=== PATIENT | female | born 1985 | race Caucasian/White ===

== ENCOUNTER 2017-05-12 07:03 | Inpatient (IN) | payer BC ==
[~2017-05-12] VITALS: Ht 167.6 cm; Wt 127.3 kg
[2017-05-12] VITALS (67 sets, daily range): BP systolic 97–146; BP diastolic 55–86; PULSE 69–117; TEMP 97.4–98.4
[~2017-05-12 07:03] MED LIST: MOTRIN 600600 MG/TAB PO; PEPCID AC20 MG PO; PERCOCET 325 MG1 TA2 PO; PRENATAL; PROAIR HFA0.09 MG/AC IH; ZYRTEC 10MG10 MG PO
[2017-05-12 09:49] LABS: HEMATOCRIT 39.8 % (37.0-47.0); HEMOGLOBIN 13.1 g/dl (12.5-16.0); MEAN CELL VOLUME 90 fl (80.0-100.0); MEAN CORPUSCULAR HEMOGLOBIN 30 pg (27.0-31.0); MEAN CORPUSCULAR HGB CONC 33 g/dl (33.0-37.0); MEAN PLATELET VOLUME 9.4 fl (7.4-10.4); PLATELET COUNT 113 K/mm3 (130-400); RED BLOOD COUNT 4.42 M/mm3 (4.10-5.30)
[2017-05-12 10:12] LABS: ANISOCYTOSIS 1+; BAND 12 % (0-10); EOSINOPHIL 2 % (0-4); LYMPHOCYTE 16 % (20.0-51.0); NEUTROPHILS 63 % (42.0-75.2); PLATELET ESTIMATE DECREASED (NORMAL)
[2017-05-13] VITALS (22 sets, daily range): BP systolic 100–150; BP diastolic 45–77; PULSE 85–116; TEMP 97.4–98.5
[2017-05-14 07:41] VITALS: BP 112/68; PULSE 78; TEMP 98.1
[2017-05-14] MEDS ORDERED: MOTRIN 600600 MG/TAB PO (09:57)
[2017-05-14] MEDS ORDERED: PERCOCET 325 MG1 TA2 PO (09:57)
[2017-05-14 12:00] VITALS: BP 114/64; PULSE 78; TEMP 97.8
== END 2017-05-14 12:10 | disposition home or self-care (01) | DRG 775 ==
LOC: OB 07:03 → LDR 07:03 → OB 05-13 05:40
PROVIDERS: Obstetrics & Gynecology
PROC: 10E0XZZ Delivery of Products of Conception, External Approach (ICD-10-PCS; principal; 2017-05-13)
DX: O69.81X0 Labor and delivery complicated by cord around neck, without compression, not applicable or unspecified (principal); O76 Abnormality in fetal heart rate and rhythm complicating labor and delivery; Z3A.39 39 weeks gestation of pregnancy; Z37.0 Single live birth
CPT/HCPCS: J1200; J2405; J2550; J2590; J7120

== ENCOUNTER 2017-09-28 07:47 | Day surgery (SDC) | payer BC ==
[~2017-09-28] VITALS: Ht 167.6 cm; Wt 113.2 kg
[~2017-09-28 07:47] MED LIST changes: -PRENATAL; +PRENATAL PO
[2017-09-28] MEDS ORDERED: FLONASEALLERGY NS (08:13)
[2017-09-28] MEDS ORDERED: LODINE400 MG PO (08:13)
[2017-09-28 08:28] VITALS: BP 118/80; PULSE 88; TEMP 97.9
[2017-09-28 09:40] VITALS: BP 121/64; PULSE 78; TEMP 97.8
[2017-09-28 09:55] VITALS: BP 89/58; PULSE 67
[2017-09-28 10:10] VITALS: BP 117/75; PULSE 63
[2017-09-28 10:25] VITALS: BP 161/65; PULSE 62
== END 2017-09-28 10:40 | disposition home or self-care (01) ==
LOC: SDCO 07:47
DX: K60.1 Chronic anal fissure (principal); K92.1 Melena; Z80.3 Family history of malignant neoplasm of breast; Z88.0 Allergy status to penicillin
CPT/HCPCS: J0585; J2704; J7030

== ENCOUNTER → 2018-08-22 | Outpatient (CLI) | payer BC ==
[~2018-08-22] MED LIST changes: +FLONASEALLERGY NS; +LODINE400 MG PO
== END ==
LOC: ZCOL.LAB 17:08
DX: J32.4 Chronic pansinusitis (principal)

== ENCOUNTER → 2021-04-24 | Outpatient (CLI) | payer BC | LOC: COL.RAD 14:29 | DX: J32.0 Chronic maxillary sinusitis (principal) ==